=== PATIENT | female | born 1980 | race Two or more races ===

== ENCOUNTER 2016-10-26 23:12 | Emergency (ER) | payer MEDICAID, OTHER ==
[~2016-10-26] VITALS: Ht 170.2 cm; Wt 59.0 kg
[~2016-10-26 23:12] MED LIST: BACTRIM DS TAB1 EAC1 ORAL; BACTRIM-DS1 EA ORAL; COLACE100 MG ORAL; IBUPROFEN600 MG ORAL; NORCO 5-325 TA1 EACH ORAL; ONDANSETRON ODT4 MG ORAL
[2016-10-26] MEDS ORDERED: NKM (23:21)
[2016-10-26 23:25] VITALS: BP 126/83
--- NOTE | 2016-10-26 23:37 | Emergency Room Report ---
History of Present Illness General Chief Complaint: Pelvic Pain Source: Patient Present Illness HPI Is a 35-year-old female with no significant past medical history. She presents with chief complaint of pelvic pain and pressure. Onset for 3 days. Has not urgency or frequency. No nausea no vomiting. Had fever tonight. Also with increasing pain. No nausea no vomiting. [place] dizzy. Denies any other complaint. No back pain. Allergies: Coded Allergies: No Known Allergies (Unverified , 04/09/14) Patient History Past Medical History: see triage record, old chart reviewed Past Surgical History: none Pertinent Family History: none Social History: Denies: smoking Last Menstrual Period: 09/27/16 Now: No : 4 Para: 3 Immunizations: other Reviewed Nursing Documentation: PMH: Agreed, PSxH: Agreed Nursing Documentation-PM Past Medical History: No Stated History Review of Systems Constitutional: Reports: fever Eye: Denies: blurred vision, eye pain ENT: Denies: ear pain, nose congestion, throat swelling Respiratory: Denies: cough, shortness of breath Cardiovascular: Denies: chest pain, palpitations Gastrointestinal: Denies: abdominal pain, diarrhea, nausea, vomiting Genitourinary: Reports: other - Pressure Musculoskeletal: Denies: back pain, joint pain Skin: Denies: rash Neurological: Denies: headache, numbness Endocrine: Denies: increased thirst, increased urine Hematologic/Lymphatic: Denies: easy bruising All Other Systems: negative except mentioned in HPI Physical Exam Vital Signs Date Time Temp Pulse Resp B/P Pulse Ox O2 Delivery O2 Flow Rate FiO2 10/26/16 23:17 98.4 85 14 126/83 100 10/26/16 23:25 Room Air vitals unremarkable Sp02 EP Interpretation: reviewed, normal General Appearance: well appearing, no apparent distress, alert Head: normocephalic, atraumatic Eyes: bilateral eye EOMI, bilateral eye PERRL ENT: hearing grossly normal, normal pharynx Neck: full range of motion, supple, no meningismus Respiratory: chest non-tender, lungs clear, normal breath sounds Cardiovascular #1: regular rate, rhythm, no murmur Gastrointestinal: normal bowel sounds, no mass, no organomegaly, no bruit, non- distended, tenderness - Right lower quadrant Musculoskeletal: back normal, gait/station normal, normal range of motion Psychiatric: mood/affect normal Skin: warm/dry Medical Decision Making Diagnostic Impression: Primary Impression: UTI (lower urinary tract infection) Additional Impression: Abdominal pain Qualified Codes: R10.31 - Right lower quadrant pain ER Course Patient present with pelvic pressure and abdominal pain. She insisted that she has a urinary tract infection. She did any outpatient urinary dip is positive for infection. Urine here is not very impressive. She does have right lower quadrant pain. Am concerned that she may have appendicitis. 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 She also has multiple doctors in the family. She does not think that she has appendicitis. She does not want any blood draw or CT scan. She wanted to take antibiotics and if things don't respond within 12 hours she will come back for further workup. She did grow out Escherichia coli in the past that is sensitive to other drugs. Last Vital Signs Date Time Temp Pulse Resp B/P Pulse Ox O2 Delivery O2 Flow Rate FiO2 10/26/16 23:25 98.4 85 14 126/83 100 Room Air Status: improved Disposition: HOME, SELF-CARE Condition: Stable Scripts Cephalexin* (KEFLEX*) 500 Mg Capsule 500 MG ORAL TID, #21 CAP 0 Refills Prov: GALINA LOU M.D. 10/27/16 Referrals: [facility],REFERRIN (PCP) Additional Instructions: Followup your Dr. in 2-3 days. Return if not better within 12 hours. Return if having fever, loss of appetite, nausea or vomiting. GALINA LOU M.D. Oct 26, 2016 23:37
[2016-10-26 23:52] LABS: APPEARANCE,URINE SLIGHTLY CLOUDY; KETONES,URINE NEGATIVE (NEGATIVE); LEUKOCYTE ESTERASE ,URINE 1+ (NEGATIVE); NITRITE,URINE NEGATIVE (NEGATIVE); PH,URINE 7 (4.5-8.0); PROTEIN,URINE 1+ (NEGATIVE); UROBILINOGEN,URINE NORMAL MG/DL (0.0-1.0)
[2016-10-26 23:55] LABS: BACTERIA,URINE FEW /HPF; RBC,URINE TNTC /HPF (0 - 2); SQUAMOUS EPITHELIAL CELL,UR FEW /LPF (NONE/OCC)
[2016-10-27] MEDS ORDERED: KEFLEX500 MG ORAL (00:19)
[2016-10-27 00:20] VITALS: BP 125/78
[2016-10-27] MEDS ORDERED: Cephalexin 500mg cap ORAL ONE (00:30)
== END 2016-10-27 00:30 | disposition home or self-care (01) ==
LOC: EMR 23:30
DX: N39.0 Urinary tract infection, site not specified (principal)
CPT/HCPCS: 81003; 99283

== ENCOUNTER 2016-11-15 17:53 | Emergency (ER) | payer MEDICAID ==
[~2016-11-15] VITALS: Ht 170.2 cm; Wt 54.4 kg
[~2016-11-15 17:53] MED LIST changes: +KEFLEX500 MG ORAL; +NKM
[2016-11-15 18:28] VITALS: BP 122/82
[2016-11-15] MEDS ORDERED: Norco 5mg/325mg tab ORAL ONE (18:30)
[2016-11-15] MEDS ORDERED: Ketorolac 30mg Inj IM ONE (18:30)
[2016-11-15] MEDS ORDERED: IBUPROFEN600 MG ORAL (18:49)
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
== END 2016-11-15 19:22 | disposition home or self-care (01) ==
LOC: EDBD 17:53 → EMR 19:00 → EDUNIT# 19:00 → EMR 19:22
DX: S82.891A Other fracture of right lower leg, initial encounter for closed fracture (principal); V29.9XXA Motorcycle rider (driver) (passenger) injured in unspecified traffic accident, initial encounter; Y92.410 Unspecified street and highway as the place of occurrence of the external cause; Y99.8 Other external cause status
CPT/HCPCS: 29515; 96372; 97761; 99283; J1885

== ENCOUNTER 2017-02-09 21:07 | Emergency (ER) | payer MEDICAID, OTHER ==
[~2017-02-09] VITALS: Ht 170.2 cm; Wt 54.4 kg
[2017-02-09] MEDS ORDERED: Norco 5mg/325mg tab ORAL ONE (22:00)
[2017-02-09] MEDS ORDERED: Ketorolac 60mg Inj IM ONE (22:00)
[2017-02-09] MEDS ORDERED: Morphine Sulfate 4mg/ml Inj IM ONE (22:00)
--- NOTE | 2017-02-09 22:21 | Emergency Room Report ---
History of Present Illness General Chief Complaint: Abdominal Pain Source: Patient Present Illness HPI Is a 36-year-old female with no significant past medical history patient presents with suprapubic lower quadrant pain. Onset was today. She says she has a urinary tract infection symptoms for the last 3 or 4 days. She has urinary frequency and urgency. Also with some pain. It got worse tonight. Has not taking any myotic is for urinary tract infection. No other complaint. Pain is 10 out of 10. No fever or chills. No nausea no vomiting or diarrhea. Allergies: Coded Allergies: No Known Allergies (Unverified , 02/09/17) Patient History Past Medical History: see triage record, old chart reviewed Past Surgical History: none Pertinent Family History: none Social History: Denies: smoking Last Menstrual Period: january 18 Now: No Immunizations: other Reviewed Nursing Documentation: PMH: Agreed, PSxH: Agreed Nursing Documentation-PM Past Medical History: No Stated History Review of Systems Eye: Denies: blurred vision, eye pain ENT: Denies: ear pain, nose congestion, throat swelling Respiratory: Denies: cough, shortness of breath Cardiovascular: Denies: chest pain, palpitations Gastrointestinal: Reports: abdominal pain, Denies: diarrhea, nausea, vomiting Musculoskeletal: Denies: back pain, joint pain Skin: Denies: rash Neurological: Denies: headache, numbness Endocrine: Denies: increased thirst, increased urine Hematologic/Lymphatic: Denies: easy bruising All Other Systems: negative except mentioned in HPI Physical Exam Vital Signs Date Time Temp Pulse Resp B/P Pulse Ox O2 Delivery O2 Flow Rate FiO2 02/09/17 21:30 99.0 79 16 112/79 99 vitals normal Sp02 EP Interpretation: reviewed, normal General Appearance: well appearing, no apparent distress, alert Head: normocephalic, atraumatic Eyes: bilateral eye EOMI, bilateral eye PERRL ENT: hearing grossly normal, normal pharynx Neck: full range of motion, supple, no meningismus Respiratory: chest non-tender, lungs clear, normal breath sounds Cardiovascular #1: regular rate, rhythm, no murmur Gastrointestinal: normal bowel sounds, no mass, no organomegaly, no bruit, non- distended, tenderness - Suprapubic Musculoskeletal: back normal, gait/station normal, normal range of motion Psychiatric: mood/affect normal Skin: warm/dry Medical Decision Making Diagnostic Impression: Primary Impression: UTI (lower urinary tract infection) Additional Impression: Pelvic pain ER Course She presents with UTI symptoms and pelvic pain. She felt better now. No evidence of ectopic. No drug use. She grew out Escherichia coli in the past. Because of her symptoms we'll put her antibiotics. Urinalysis however is equivocal. Last Vital Signs Date Time Temp Pulse Resp B/P Pulse Ox O2 Delivery O2 Flow Rate FiO2 02/09/17 21:30 99.0 79 16 112/79 99 Status: improved Disposition: HOME, SELF-CARE Condition: Stable Scripts Ibuprofen* (MOTRIN*) 600 Mg Tablet 600 MG ORAL THREE TIMES A DAY, #30 TAB 0 Refills Prov: GALINA LOU M.D. 02/09/17 Cephalexin* (KEFLEX*) 500 Mg Capsule 500 MG ORAL TID, #21 CAP 0 Refills Prov: GALINA LOU M.D. 02/09/17 Additional Instructions: Followup with your Dr. in 2-3 days. Return if symptom worsen. GALINA LOU M.D. Feb 09, 2017 22:21
[2017-02-09 22:31] LABS: APPEARANCE,URINE CLEAR; KETONES,URINE NEGATIVE (NEGATIVE); LEUKOCYTE ESTERASE ,URINE 2+ (NEGATIVE); NITRITE,URINE NEGATIVE (NEGATIVE); PH,URINE 8 (4.5-8.0); PROTEIN,URINE NEGATIVE (NEGATIVE); UROBILINOGEN,URINE NORMAL MG/DL (0.0-1.0)
[2017-02-09 22:47] LABS: BACTERIA,URINE FEW /HPF; RBC,URINE 0-2 /HPF (0 - 2); SQUAMOUS EPITHELIAL CELL,UR FEW /LPF (NONE/OCC)
[2017-02-09] MEDS ORDERED: KEFLEX500 MG ORAL (22:57)
[2017-02-09] MEDS ORDERED: IBUPROFEN600 MG ORAL (22:57)
[2017-02-09 23:04] VITALS: BP 112/79
== END 2017-02-09 23:03 | disposition home or self-care (01) ==
LOC: EDUNIT# 21:07 → EDBD 21:07 → EMR 21:40
DX: N39.0 Urinary tract infection, site not specified (principal); R10.2 Pelvic and perineal pain
CPT/HCPCS: 80300; 81003; 81025; 99284